=== PATIENT | male | born 1970 | race Caucasian/White ===

== ENCOUNTER 2016-11-01 09:55 | Day surgery (SDC) | payer OTHER ==
[2016-11-01] MEDS ORDERED: ASPIRIN EC 325 MG TAB PO ONE (09:57)
[2016-11-01] MEDS ORDERED: DIAZEPAM 5 MG TAB PO ONE (09:57)
[2016-11-01] MEDS ORDERED: diphenhydrAMINE 25 MG CAP PO ONE (09:57)
[2016-11-01] MEDS ORDERED: FAMOTIDINE 20 MG TAB PO ONE (09:57)
[2016-11-01] MEDS ORDERED: NS 1,000 ML IV ONE (09:57)
--- NOTE | 2016-11-01 10:23 | CPEKG ---
Heart Rate: 90 RR Interval: 667 P-R Interval: 164 QRSD Interval: 80 QT Interval: 368 QTC Interval: 451 P [place]: 48 QRS [place]: 50 T Wave [place]: 194 EKG Severity - NORMAL ECG - EKG Impression: SINUS RHYTHM EKG Impression: NONSPECIFIC ST_T WAVE ABNORMAILITES EKG Impression: ANTEROSEPTAL INFARCT, AGE INDETERMINATE Electronically Signed By: Dash Fung 01-Nov-2016 16:17:48
[2016-11-01 10:45] LABS: % IMMATURE GRANULYOCYTES 0.4 % (0.0-1.1); ABSOLUTE IMMATURE GRANULOCYTES 0.02 10^3/uL (0.00-0.10); ADD DIFF? NO; ADD MORPH? NO; ADD SCAN? NO; ATYPICAL LYMPHOCYTE FLAG 60 (0-99); FRAGMENT RBC FLAG 0 (0-99); HEMATOCRIT 42.3 % (40.0-51.0); HEMOGLOBIN 14.5 g/dL (13.7-17.5); LEFT SHIFT FLG 0 (0-99); LIPEMIA HEMOLYSIS FLAG 90 (0-99); MEAN CELL HEMOGLOBIN 29.3 pg (27.9-34.1); MEAN CELL HEMOGLOBIN CONCENTR. 34.3 g/dL (32.4-36.7); MEAN CELL VOLUME 85.5 fL (81.5-99.8); MEAN PLATELET VOLUME 10.1 fL (8.7-11.7); PLATELET CLUMPS FLAG 0 (0-99); PLATELET COUNT 201 10^3/uL (150-400); RED BLOOD CELL COUNT 4.95 10^6/uL (4.40-6.38); RED CELL DISTRIBUTION WIDTH 13.2 % (11.5-15.2)
[2016-11-01 10:53] LABS: INR 0.99 (0.83-1.16)
[2016-11-01 10:57] LABS: ANION GAP 11 mEq/L (8-16); CALCIUM 10.1 mg/dL (8.5-10.4); CARBON DIOXIDE 23 mEq/l (22-31); CHLORIDE 105 mEq/L (97-110); CHOLESTEROL 228 mg/dL (140-200); GLOMERULAR FILTRATION RATE > 60; GLUCOSE 88 mg/dL (70-100); HIGH DENSITY LIPOPROTEIN 53 mg/dL (40-65); LDL/HDL RATIO 2.77 RATIO (1.00-3.64); LOW DENSITY LIPOPROTEIN 147 mg/dL (70-100); MAGNESIUM 1.8 mg/dL (1.6-2.3); NON-HIGH DENSITY LIPOPROTEIN 175 mg/dL (90-129); POTASSIUM 3.9 mEq/L (3.5-5.2); SODIUM 139 mEq/L (134-144); TRIGLYCERIDE 140 mg/dL (40-150); VERY LOW DENSITY LIPOPROTEINS 28 mg/dL (8-25)
[2016-11-01] MEDS ORDERED: fentaNYL 100 MCG/2 ML INJ ONE ×2 (12:51→13:27)
[2016-11-01] MEDS ORDERED: VERAPAMIL 5 MG/2 ML VIAL ONE (12:51)
[2016-11-01] MEDS ORDERED: LIDOCAINE 1% 300 MG/30 ML SDV ONE (12:51)
[2016-11-01] MEDS ORDERED: MIDAZOLAM 2 MG/2 ML VIAL ONE ×3 (12:51→13:49)
[2016-11-01] MEDS ORDERED: HEPARIN 10,000 UNIT/10 ML MDV ONE (12:52)
[2016-11-01] MEDS ORDERED: IOPAMIDOL (ISOVUE-370) 150 ML BTL IV ONE ×2 (12:52→13:44)
[2016-11-01] MEDS ORDERED: NITROGLYCERIN 1,500 MCG/15 ML VIAL MISC ONE (13:50)
--- NOTE | 2016-11-01 14:52 | CPIP ---
[f rep st] INVASIVE CARDIAC PROCEDURE DATE OF PROCEDURE: 11/01/2016 PROCEDURE: Coronary angiography. INDICATION: 1. Dyspnea on exertion. 2. Intermediate risk, abnormal nuclear stress test. ACCESS: Patient was prepped and draped in sterile fashion. 1% lidocaine was used to anesthetize th e right radial region. A 5-[place] introducer sheath was placed selectively into the right radial ar dionisio via modified Seldinger technique. CORONARY ANGIOGRAPHY: A 5-[place] Kirby 4 catheter was advanced to the left main coronary artery and images obtained. The left main coronary artery bifurcated into LAD and circumflex coronary arterie s. The left main coronary artery appeared normal. The left anterior descending coronary artery gav e rise to 1 prominent diagonal branch. The left anterior descending coronary artery and its diagona l branch appeared normal. The circumflex coronary artery is a large vessel but was nondominant. Th e circumflex coronary artery gave rise to 3 OM branches. The first OM branch is relatively small. The second and third OM branches were large. The circumflex coronary artery and its complement of O M branches appeared normal. A 5-[place] JR4 was advanced to the right coronary artery and images obt ained. The right coronary artery is dominant. The right coronary artery appeared normal. LEFT VENTRICULOGRAPHY: Left ventriculography was not performed as the patient had a previous echoca rdiogram demonstrating preserved left ventricular systolic function. COMPLICATIONS: None. CONCLUSIONS: Normal coronary arteries. /[id number]/MODL
== END 2016-11-01 16:10 | disposition home or self-care (01) ==
LOC: FCATH 09:55
PROVIDERS: ATTEND Internal Medicine Cardiovascular Disease
PROC: 4A023N7 Measurement of Cardiac Sampling and Pressure, Left Heart, Percutaneous Approach (ICD-10-PCS; principal; 2016-11-01)
PROC: B2111ZZ Fluoroscopy of Multiple Coronary Arteries using Low Osmolar Contrast (ICD-10-PCS; principal; 2016-11-01)
DX: I51.7 Cardiomegaly (principal); E78.5 Hyperlipidemia, unspecified; G35 Multiple sclerosis
CPT/HCPCS: 93005; 93454; C1769; J1200; J1644; J2250; J3010; Q9967